=== PATIENT | male | born 1970 | race Caucasian/White ===

== ENCOUNTER 2019-01-11 12:37 | Emergency (ER) | payer MEDICARE, OTHER ==
[~2019-01-11] VITALS: Ht 182.9 cm; Wt 158.8 kg
[~2019-01-11 12:37] MED LIST: AMPDEX30CR; LISI5; METPHE18ER; Prozac20 MG PO
[2019-01-11 13:12] LABS: Source, Urine Clean Catch
[2019-01-11 13:17] LABS: Appearance, Urine Clear (Clear); Bilirubin, Urine Neg (Neg); Blood, Urine 4+ (Neg); Color, Urine Yellow (P-Yellow); Glucose Qualitative, Urine 4+ (Neg); Ketones, Urine 1+ (Neg); Leukocyte Esterase, Urine 3+ (Neg); Nitrite, Urine Neg (Neg); Protein, Urine 3+ (Neg); Urobilinogen, Urine NORM (Normal); pH, Urine 6.5 (5.0-8.0)
[2019-01-11 13:31] LABS: White Blood Cells, Urine 25-50 /hpf (0-5)
[2019-01-11 13:32] LABS: Bacteria Mod /hpf; Red Blood Cells, Urine 25-50 /hpf (0-2); Squamous Epithelial Cells Few /hpf (Few)
[2019-01-11] MEDS ORDERED: CEPH500 PO (14:49)
== END 2019-01-11 15:22 | disposition home or self-care (01) ==
LOC: ER 12:37
PROVIDERS: Physician Assistant
DX: T19.4XXA Foreign body in penis, initial encounter (principal); N39.0 Urinary tract infection, site not specified; F31.9 Bipolar disorder, unspecified; F17.200 Nicotine dependence, unspecified, uncomplicated; Z79.899 Other long term (current) drug therapy
CPT/HCPCS: 72170; 81001; 87086; 99283-25; A9270-GY

== ENCOUNTER 2021-12-02 07:54 | Emergency (ER) | payer OTHER ==
[~2021-12-02] VITALS: Ht 185.4 cm; Wt 127.0 kg
[~2021-12-02 07:54] MED LIST changes: +CEPH500 PO
[2021-12-02 09:02] LABS: Source, Urine Foley catheter
[2021-12-02 09:16] LABS: Appearance, Urine Hazy (Clear); Blood, Urine 3+ (Neg); Color, Urine Yellow (P-Yellow); Glucose Qualitative, Urine Neg (Neg); Ketones, Urine 1+ (Neg); Leukocyte Esterase, Urine 3+ (Neg); Nitrite, Urine Pos (Neg); Protein, Urine 4+ (Neg); Specific Gravity, Urine 1.015 (1.003-1.022); Urobilinogen, Urine 2+ (Normal)
[2021-12-02 09:32] LABS: Bilirubin, Urine 1+ (Neg)
[2021-12-02 09:37] LABS: White Blood Cells, Urine 25-50 /hpf (0-5)
[2021-12-02 09:43] LABS: Bacteria Many /hpf; Mucus Mod (0-Heavy); Squamous Epithelial Cells Rare /hpf (Few)
[2021-12-02] MEDS ORDERED: CEFP200 PO (10:18)
[2021-12-02] MEDS ORDERED: TAMS.4ER PO (10:18)
== END 2021-12-02 11:08 | disposition home or self-care (01) ==
LOC: ER 07:54
PROVIDERS: Physician Assistant
DX: N30.01 Acute cystitis with hematuria (principal); F17.210 Nicotine dependence, cigarettes, uncomplicated; Z79.899 Other long term (current) drug therapy
CPT/HCPCS: 51798; 81001; 87077; 87086; 87186; J0696

== ENCOUNTER 2022-05-22 11:52 | Observation (INO) | payer MEDICARE, OTHER ==
[~2022-05-22] VITALS: Ht 182.9 cm; Wt 162.3 kg
[~2022-05-22 11:52] MED LIST changes: +CEFP200 PO; +TAMS.4ER PO
[2022-05-22 12:52] LABS: BASOPHILS ABSOLUTE AUTO 0.04 K/mm3 (0.00-0.23); BASOPHILS PERCENT AUTO 0 % (0-2); EOSINOPHILS ABSOLUTE AUTO 0.13 K/mm3 (0.00-0.68); EOSINOPHILS PERCENT AUTO 1 % (0-6); IMMATURE GRAN ABSOLUTE AUTO 0.77 K/mm3 (0.00-0.10); IMMATURE GRAN PERCENT AUTO 4 % (0-1); LYMPHOCYTES ABSOLUTE AUTO 3.24 K/mm3 (0.84-5.20); LYMPHOCYTES PERCENT AUTO 17 % (21-46); MONOCYTES ABSOLUTE AUTO 1.56 K/mm3 (0.16-1.47); MONOCYTES PERCENT AUTO 8 % (4-13); Mean Corpuscular HGB 34.8 pg (26.0-34.0); Mean Corpuscular Volume 109 fL (80-100); NEUTROPHILS ABSOLUTE AUTO 12.86 K/mm3 (1.96-9.15); NEUTROPHILS PERCENT AUTO 69 % (41-73); NRBC ABSOLUTE 0.72 K/mm3 (0.00-0.02); NRBC Auto 3.9 /100 WBC (0.0-0.2); Platelet Count 272 K/mm3 (150-400); RDW Coefficient Variation 17.6 % (11.7-14.2); RDW Standard Deviation 61.9 fL (35.1-46.3); Red Blood Cell Count 1.64 M/mm3 (4.30-5.90)
[2022-05-22 12:58] LABS: Hematocrit 17.8 % (37.0-53.0); Hemoglobin 5.7 g/dL (13.5-17.5)
[2022-05-22 13:05] LABS: Alanine Aminotransfer (ALT/SGP 38 U/L (12-78); Albumin, Blood 2.7 g/dL (3.4-5.0); Albumin/Globulin Ratio 0.8 (0.8-1.8); Alk Phos 46 U/L (50-136); Anion Gap 3 mmol/L (6-16); Aspartate Aminotrans (AST/SGOT 32 U/L (12-37); Bilirubin, Total 0.4 mg/dL (0.1-1.0); Blood Urea Nitrogen 52 mg/dL (8-24); Bun/Creatinine Ratio 56.3 (12.0-20.0); CO2, Blood 29 mmol/L (21-32); Calcium, Blood 8.5 mg/dL (8.5-10.1); Chloride, Blood 103 mmol/L (98-108); Creatinine, Blood 0.92 mg/dL (0.60-1.20); Ethanol (Alcohol), Blood, Med <3 mg/dL; Globulin, Blood 3.3 g/dL (2.2-4.0); Glomerular Filtration Rate 101 (60-); Glucose, Blood 186 mg/dL (70-99); Potassium, Blood 3.8 mmol/L (3.5-5.5); Sodium, Blood 135 mmol/L (136-145)
[2022-05-22 14:02] LABS: International Normalized Ratio 1.07; Prothrombin Time Results 11.2 Sec (9.7-11.5)
[2022-05-22 15:41] LABS: Hemoglobin 5.3 g/dL (13.5-17.5)
[2022-05-22 15:44] LABS: Hematocrit 16.3 % (37.0-53.0)
[2022-05-22 16:07] LABS: Source, Urine Clean Catch
[2022-05-22 16:11] LABS: Appearance, Urine Hazy (Clear); Bilirubin, Urine Neg (Neg); Blood, Urine Neg (Neg); Color, Urine Yellow (P-Yellow); Glucose Qualitative, Urine Neg (Neg); Ketones, Urine Neg (Neg); Leukocyte Esterase, Urine 1+ (Neg); Nitrite, Urine Pos (Neg); Protein, Urine Neg (Neg); Urobilinogen, Urine NORM (Normal)
[2022-05-22] MEDS ORDERED: ABILIFY5 MG PO (16:16)
[2022-05-22] MEDS ORDERED: METF500 PO (16:16)
[2022-05-22] MEDS ORDERED: INSULIN GL100 UNIT/2 (16:17)
[2022-05-22] MEDS ORDERED: CYMBALTA30 M2 PO (16:17)
[2022-05-22] MEDS ORDERED: Budeprion Xl300 MG PO (16:17)
[2022-05-22] MEDS ORDERED: FLUTICASONE-SA1 EAC8 INH (16:18)
[2022-05-22] MEDS ORDERED: CLON.2 PO (16:18)
[2022-05-22] MEDS ORDERED: LISI20 PO (16:19)
[2022-05-22] MEDS ORDERED: METOPROLOL TART25 MG PO (16:19)
[2022-05-22] MEDS ORDERED: Ventolin/Prove6.7 GM INH (16:19)
[2022-05-22 16:20] LABS: Bacteria Many /hpf; Red Blood Cells, Urine 0-2 /hpf (0-2); Squamous Epithelial Cells Not Seen /hpf (Few)
[2022-05-22] MEDS ORDERED: INSULIN AS100 UNIT/8 SC (16:20)
[2022-05-22] MEDS ORDERED: FENOFIBRATE PO (16:20)
[2022-05-22 17:00] VITALS: BP 117/80
[2022-05-22 17:32] VITALS: BP 139/91
[2022-05-22 18:30] VITALS: BP 126/81
--- NOTE | 2022-05-22 18:55 | NUR ---
TRANSFER/SHIFT SUMMARY PT ARRIVED TO [facility] @APPROX 1645. PT A/O X4. HE IS ORIENTED TO MONTH BUT WAS UNABLE TO GIVE ME DATE. PT IS PLEASANT AND COOPERTIVE WITH CARE. HE HAS BEEN USING THE CALL LIGHT APPROPRIATELY. PT HAS SLIGHTLY SLURRED SPEECH AND STATES THIS IS ABNORMAL FOR HIM AND STARTED APPROX 2 DAYS AGO. PT IS TACHYCARDIC IN THE 110-120'S. HE IS ASYMPTOMATIC, DENYING ANY ANGINA. SPO2 >92% ON RA. RESPIRATIONS ARE EVEN AND UNLABORED AT REST. PT DOES APPEAR BE SLIGHTLY DYSPNEIC WITH EXERTION SUCH ROLLING IN BED. PT REPORTS WEARING A CPAP AT NIGHT. CPAP IS IN ROOM WITH PT. PT CONTINENT OF URINE AT BASELINE BUT HAS NEW URGENCY AND FREQUENCY AND HAD AN EPISODE OF INCONTINENCE. PT REPORTS THIS IS NEW FOR HIM AND HE TYPICALLY "ABLE TO HOLD IT" PT REPORTS HIS LAST DRINK WAS YESTERDAY AFTERNOON AND HE ONLY HAD ONE GLASS OF RUM. HE STATES HE TYPICALLY HAS 4 GLASSES OF RUM DAILY, APPROX A PINT/DAY. PT IS SLIGHTLY DIAPHORETIC. A TREMOR CAN BE FELT IN THE HANDS. HE REPORTS A VERY MILD HEADACHE THAT HE STATES IS CHRONIC FOR HIM. PT APPEARS DISHEVELED. HE APPEARS TO HAVE DIRT T/O BODY WITH A SIGNIFICANT AMOUNT ON FEET UPON ARRIVAL. NO WOUNDS WERE NOTED. PT REPORTS THAT HE LIVES AT HOME WITH HIS PARENTS AND THAT THEY HAVE GUARDIANSHIP OVER HIM. WILL CONTINUE TO CARE FOR PT AND REPORT TO ONCOMING RN.
[2022-05-22 19:00] VITALS: BP 143/94
--- NOTE | 2022-05-22 19:00 | NUR ---
ASSUMED CARE OF PT AT 1900 PT A/O X3. PT IS ANXIOUS AND ASKS THE SAME QUESTIONS TO ANY STAFF THAT ENTERS THE ROOM. USES CALL LIGHT FOR NEEDS. RESP- SPO2 >92% ON RA. LUNG SOUNDS CLEAR BILATERALLY THROUGHOUT. NO COUGH PRESENT AT THIS TIME. CARDIAC- HR 120'S WITH SINUS TACH. GI,- PT USES URINAL WITH ONE PERSON ASSIST. PRBC RUNNING AT THIS TIME AT 150 ML/HR. PROTONIX RUNNING AT 10 MLS/HR NS RUNNING AT 75 MLS/HR. SEE FULL ASSESSMENT FOR FURTHER INFORMATION.
[2022-05-22 20:33] LABS: Hemoglobin 6.6 g/dL (13.5-17.5)
[2022-05-22 23:02] VITALS: BP 137/73
[2022-05-22 23:42] VITALS: BP 127/77
[2022-05-23] VITALS (9 sets, daily range): BP systolic 117–179; BP diastolic 66–130
[2022-05-23 02:37] LABS: Bun/Creatinine Ratio 54.5 (12.0-20.0); Calcium, Blood 7.9 mg/dL (8.5-10.1); Creatinine, Blood 0.81 mg/dL (0.60-1.20); Potassium, Blood 3.4 mmol/L (3.5-5.5)
[2022-05-23 03:04] LABS: BASOPHILS ABSOLUTE AUTO 0.04 K/mm3 (0.00-0.23); BASOPHILS PERCENT AUTO 0 % (0-2); EOSINOPHILS ABSOLUTE AUTO 0.11 K/mm3 (0.00-0.68); EOSINOPHILS PERCENT AUTO 1 % (0-6); Hematocrit 20.2 % (37.0-53.0); Hemoglobin 6.8 g/dL (13.5-17.5); IMMATURE GRAN ABSOLUTE AUTO 0.64 K/mm3 (0.00-0.10); IMMATURE GRAN PERCENT AUTO 5 % (0-1); LYMPHOCYTES ABSOLUTE AUTO 2.85 K/mm3 (0.84-5.20); LYMPHOCYTES PERCENT AUTO 20 % (21-46); MONOCYTES ABSOLUTE AUTO 1.41 K/mm3 (0.16-1.47); MONOCYTES PERCENT AUTO 10 % (4-13); Mean Corpuscular HGB 33.5 pg (26.0-34.0); Mean Corpuscular HGB Conc 33.7 g/dL (31.5-36.5); Mean Platelet Volume 9.6 fL (9.1-12.4); NEUTROPHILS ABSOLUTE AUTO 9.01 K/mm3 (1.96-9.15); NEUTROPHILS PERCENT AUTO 64 % (41-73); NRBC ABSOLUTE 0.58 K/mm3 (0.00-0.02); NRBC Auto 4.1 /100 WBC (0.0-0.2); Platelet Count 198 K/mm3 (150-400); RDW Coefficient Variation 19.5 % (11.7-14.2); RDW Standard Deviation 62.7 fL (35.1-46.3); Red Blood Cell Count 2.03 M/mm3 (4.30-5.90); White Blood Cell Count 14.06 K/mm3 (4.00-11.30)
[2022-05-23 03:05] LABS: Mean Corpuscular Volume 100 fL (80-100)
--- NOTE | 2022-05-23 04:20 | NUR ---
AGREEMENT TO PROCEDURE. PT WAS EDUCATED ON THE CURRENT BLEED THAT IS CONTINUING. PT IS AGREEABLE TO PROCEDURE NEEDED TO POSSIBLY FIND AND STOP BLEED. PT HAS NOT HAD BM THIS SHIFT YET. WILL CONTINUE TO MONITOR.
--- NOTE | 2022-05-23 05:31 | NUR ---
END OF SHIFT SUMMARY PT A/O X3. PLEASANT AND COOPERATIVE WITH CARE. C/O WEAKNESS WHEN SITTING UP. NO PAIN AT THIS TIME. RESP- >92% RA. USED CPAP MACHINE FOR LESS THAN AN HOUR THIS SHIFT. CARDIAC- SINUS TACHY ALL SHIFT WITH HR 120'S. SBP 140'S CURRENTLY. 2 UNITS PRBC GIVEN THIS SHIFT WITH THE SECOND ONCE STILL INFUSING AT THIS TIME. GI,- NO BM THIS SHIFT. PT STATES THAT HE DOES NOT FEEL LIKE HE NEEDS TO HAVE A BM. 2 BM'S REPORTED FROM DAYSHIFT YESTERDAY THAT WERE BLACK. PT USES URINAL WITH ONE PERSON ASSIST. INTEG- NO CHANGES AT THIS TIME. NS AT 75 MLS/HR. PRBC 200 MLS/HR. PT IS AGREEING TO EGD BEING DONE. DR KIDD TO BE NOTIFIED OF PT CHANGING MIND FOR PROCEDURE. WILL CONTINUE TO MONITOR UNTIL REPORT GIVEN TO AM RN.
[2022-05-23 07:45] LABS: Hematocrit 22.1 % (37.0-53.0); Hemoglobin 7.4 g/dL (13.5-17.5)
--- NOTE | 2022-05-23 09:58 | NUR ---
ASSUMPTION OF CARE: RECEIVED REPORT FROM NOC SHIFT RN. PT ALERT AND ORIENTED TO PERSON,PLACE AND SITUATION. PT RECEIVED BLOOD TX ON NOC SHIFT WHICH WAS DONE TRANSFUSING. LUNG SOUNDS CLEAR IN THE UPPER LOBES AND SLIGHTLY DIMINSHED IN THE BASES. PT APPEARED ANXIOUS AND DIAPHORETIC. CIWA DONE AND MEDICATED PER APR. PT PROTONIX RESTARTED AT 0738, WHICH HAD BEEN OFF SINCE 1999. PT WANTED TO LEAVE BUT WAS RE-EDUCATED ON THE BENEFIT OF STAYING AND GETTING TREATMENT. PT WANTED TO TRY AND GET UP HOWEVER UPON SITTING ON THE EDGE OF THE BED HE BECAME TACHYCARDIC IN THE 150-160'S. PT FAMILY AT THE BEDSIDE. PLAN IS TO SCOPE THE PT AT 1500. WILL CONTINUE TO MONITOR T/O THE SHIFT.
[2022-05-23 10:15] LABS: Hematocrit 23.2 % (37.0-53.0); Hemoglobin 7.7 g/dL (13.5-17.5)
--- NOTE | 2022-05-23 14:46 | NUR ---
05/23/22 1446 [place] MONITOR INTACT WITH CONTINUOUS PULSE OXIMETRY, CONTINUOUS END TITAL CO2, AND INTERMITTENT BLOOD PRESSURE. 3-LEAD EKG REVIEWED WITH PHYSICIAN PRIOR TO START OF PROCEDURE. O2 VIA POM INTACT THROUGHOUT SEDATION/PROCEDURE. Bite Block Placed.
[2022-05-23 16:04] LABS: Hematocrit 23.3 % (37.0-53.0); Hemoglobin 7.7 g/dL (13.5-17.5)
--- NOTE | 2022-05-23 17:15 | NUR ---
SHIFT SUMMARY: PT WENT TO DAY SURGERY FOR UPPER ENDOSCOPY AT 1400. RETURNED TO ROOM AT APPROX 1600. PT WAS TRANSITIONED TO PO PROTONIX FIRST DOSE NOW, MEDICATED PER APR. PT VITAL SIGNS STABLE. NO C/O OF CHEST PAIN OR PRESSURE T/O THE SHIFT. PT ABLE TO AMBULATE TO THE BATHROOM WITH ASSISTANCE, HR REMAINED STABLE WITH ACTIVITY. PT RECEIVING POTASSIUM IV AT 10 MLS/HR. PT EATING DINNER AT THIS TIME. PER DR. ONEIL IF NO FURTHER ISSUES LIKE N/V PT MAY D/C HOME THIS EVENING. WILL CONTINUE TO MONITOR AND GIVE REPORT TO THE ONCOMING NURSE IF PT STILL HERE AT THAT TIME.
--- NOTE | 2022-05-23 18:12 | NUR ---
THIS RN REVIEWED AND AGREED TO STUDENTS NOTES AND DOCUMENTATION.
[2022-05-23] MEDS ORDERED: Acetaminophen650 M1 PO (18:29)
[2022-05-23] MEDS ORDERED: FOLBIC PO (18:45)
[2022-05-23] MEDS ORDERED: PANT40 PO (18:46)
[2022-05-23] MEDS ORDERED: B-1100 M1 PO (18:46)
== END 2022-05-23 19:15 | disposition home or self-care (01) ==
LOC: ER 11:52 → PCU 14:48 → ER 14:48 → PCU 14:48
PROVIDERS: Emergency Medicine; Internal Medicine Gastroenterology; ADMIT Internal Medicine
PROC: 0DJ08ZZ Inspection of Upper Intestinal Tract, Via Natural or Artificial Opening Endoscopic (ICD-10-PCS; principal; 2022-05-23 14:30)
DX: K22.11 Ulcer of esophagus with bleeding (principal); K92.1 Melena; D64.9 Anemia, unspecified; T39.315A Adverse effect of propionic acid derivatives, initial encounter; E11.9 Type 2 diabetes mellitus without complications; Z79.4 Long term (current) use of insulin; E78.2 Mixed hyperlipidemia; G47.33 Obstructive sleep apnea (adult) (pediatric); I10 Essential (primary) hypertension; F10.10 Alcohol abuse, uncomplicated; G43.909 Migraine, unspecified, not intractable, without status migrainosus
CPT/HCPCS: 36415; 36430; 71045; 80048; 80053; 81001; 82947; 83036; 85014; 85018; 85025; 85610; 86850; 86900; 86901; 86923; 87077; 87086; 87186; 93005; 93010; 94660; 94762; 96365; 96375; 99285-25; A9270; C9113; G0378; G0480; J1815; J2060; J2704; J3411; J3480; J7030; J7120; P9016

== ENCOUNTER 2022-06-03 00:08 | Day surgery (SDC) | payer MEDICARE, OTHER ==
[2022-06-03] VITALS (7 sets, daily range): BP systolic 149–164; BP diastolic 88–110
[~2022-06-03 00:08] MED LIST changes: +ABILIFY5 MG PO; +Acetaminophen650 M1 PO; +B-1100 M1 PO; +Budeprion Xl300 MG PO; +CLON.2 PO; +CYMBALTA30 M2 PO; +FENOFIBRATE PO; +FLUTICASONE-SA1 EAC8 INH; +FOLBIC PO; +INSULIN AS100 UNIT/8 SC; +INSULIN GL100 UNIT/2; +LISI20 PO; +METF500 PO; +METOPROLOL TART25 MG PO; +PANT40 PO; +Ventolin/Prove6.7 GM INH
[2022-06-03] MEDS ORDERED: NURTEC ODT75 MG PO (14:26)
== END 2022-06-03 17:10 | disposition home or self-care (01) ==
LOC: ATC 00:08
DX: D50.0 Iron deficiency anemia secondary to blood loss (chronic) (principal); I10 Essential (primary) hypertension; E11.9 Type 2 diabetes mellitus without complications; F17.210 Nicotine dependence, cigarettes, uncomplicated; Z88.1 Allergy status to other antibiotic agents; Z88.8 Allergy status to other drugs, medicaments and biological substances
CPT/HCPCS: 36415; 36430; 86850; 86900; 86901; 86923; J7050; P9016

== ENCOUNTER 2022-09-10 05:59 | Emergency (ER) | payer MEDICARE, OTHER ==
[~2022-09-10] VITALS: Ht 182.9 cm; Wt 136.1 kg
[~2022-09-10 05:59] MED LIST changes: +Lopressor 50 mg50 MG PO; +NURTEC ODT75 MG PO
[2022-09-10 06:41] LABS: BASOPHILS ABSOLUTE AUTO 0.04 K/mm3 (0.00-0.23); BASOPHILS PERCENT AUTO 1 % (0-2); EOSINOPHILS ABSOLUTE AUTO 0.22 K/mm3 (0.00-0.68); EOSINOPHILS PERCENT AUTO 3 % (0-6); Hematocrit 36.1 % (37.0-53.0); Hemoglobin 10.2 g/dL (13.5-17.5); IMMATURE GRAN ABSOLUTE AUTO 0.01 K/mm3 (0.00-0.10); IMMATURE GRAN PERCENT AUTO 0 % (0-1); LYMPHOCYTES ABSOLUTE AUTO 1.32 K/mm3 (0.84-5.20); LYMPHOCYTES PERCENT AUTO 19 % (21-46); MONOCYTES PERCENT AUTO 9 % (4-13); Mean Corpuscular HGB Conc 28.3 g/dL (31.5-36.5); Mean Corpuscular Volume 78 fL (80-100); Mean Platelet Volume 9.1 fL (9.1-12.4); NEUTROPHILS ABSOLUTE AUTO 4.61 K/mm3 (1.96-9.15); NEUTROPHILS PERCENT AUTO 68 % (41-73); Platelet Count 207 K/mm3 (150-400); RDW Coefficient Variation 19.8 % (11.7-14.2); RDW Standard Deviation 55.1 fL (35.1-46.3); Red Blood Cell Count 4.64 M/mm3 (4.30-5.90)
[2022-09-10 07:03] LABS: Albumin, Blood 3.3 g/dL (3.4-5.0); Albumin/Globulin Ratio 0.8 (0.8-1.8); Bilirubin, Total 0.4 mg/dL (0.1-1.0); Bun/Creatinine Ratio 16.4 (12.0-20.0); Calcium, Blood 9.1 mg/dL (8.5-10.1); Creatinine, Blood 0.91 mg/dL (0.60-1.20); Globulin, Blood 4.1 g/dL (2.2-4.0); Potassium, Blood 4.8 mmol/L (3.5-5.5); Total Protein, Blood 7.4 g/dL (6.4-8.2)
[2022-09-10] MEDS ORDERED: HYDCHL25 PO (11:12)
[2022-09-10] MEDS ORDERED: AMLO5 PO (11:12)
[2022-09-10] MEDS ORDERED: LABE200 PO (11:12)
[2022-09-10 11:15] VITALS: BP 190/122
== END 2022-09-10 11:19 | disposition home or self-care (01) ==
LOC: ER 05:59 → MEDS 06:00 → ER 06:00
PROVIDERS: Emergency Medicine
DX: I16.9 Hypertensive crisis, unspecified (principal); E11.9 Type 2 diabetes mellitus without complications; K21.9 Gastro-esophageal reflux disease without esophagitis; F17.210 Nicotine dependence, cigarettes, uncomplicated; Z88.1 Allergy status to other antibiotic agents; Z79.4 Long term (current) use of insulin; Z79.84 Long term (current) use of oral hypoglycemic drugs; Z79.899 Other long term (current) drug therapy
CPT/HCPCS: 71046; 80053; 83880; 84484; 85025; 93005; 93010; 96374; 96375; 99284-25; A9270; C8929; J1815; J2060; Q9957

== ENCOUNTER 2022-09-13 16:53 | Observation (INO) | payer MEDICARE, OTHER ==
[~2022-09-13] VITALS: Ht 182.9 cm; Wt 150.8 kg
[~2022-09-13 16:53] MED LIST changes: +AMLO5 PO; +HYDCHL25 PO; +LABE200 PO
[2022-09-13 18:04] LABS: BASOPHILS ABSOLUTE AUTO 0.05 K/mm3 (0.00-0.23); BASOPHILS PERCENT AUTO 1 % (0-2); EOSINOPHILS ABSOLUTE AUTO 0.21 K/mm3 (0.00-0.68); EOSINOPHILS PERCENT AUTO 3 % (0-6); Hematocrit 36.9 % (37.0-53.0); Hemoglobin 10.6 g/dL (13.5-17.5); IMMATURE GRAN ABSOLUTE AUTO 0.03 K/mm3 (0.00-0.10); IMMATURE GRAN PERCENT AUTO 0 % (0-1); LYMPHOCYTES ABSOLUTE AUTO 2.06 K/mm3 (0.84-5.20); LYMPHOCYTES PERCENT AUTO 25 % (21-46); MONOCYTES ABSOLUTE AUTO 0.69 K/mm3 (0.16-1.47); MONOCYTES PERCENT AUTO 8 % (4-13); Mean Corpuscular HGB 22.1 pg (26.0-34.0); Mean Corpuscular HGB Conc 28.7 g/dL (31.5-36.5); Mean Corpuscular Volume 77 fL (80-100); Mean Platelet Volume 8.9 fL (9.1-12.4); NEUTROPHILS ABSOLUTE AUTO 5.13 K/mm3 (1.96-9.15); NEUTROPHILS PERCENT AUTO 63 % (41-73); Platelet Count 282 K/mm3 (150-400); RDW Coefficient Variation 19.9 % (11.7-14.2); RDW Standard Deviation 55.2 fL (35.1-46.3); Red Blood Cell Count 4.79 M/mm3 (4.30-5.90); White Blood Cell Count 8.17 K/mm3 (4.00-11.30)
[2022-09-13 18:05] LABS: Albumin, Blood 3.5 g/dL (3.4-5.0); Albumin/Globulin Ratio 0.8 (0.8-1.8); Bilirubin, Total 0.3 mg/dL (0.1-1.0); Bun/Creatinine Ratio 14.7 (12.0-20.0); Calcium, Blood 9.5 mg/dL (8.5-10.1); Creatinine, Blood 1.02 mg/dL (0.60-1.20); Globulin, Blood 4.3 g/dL (2.2-4.0); Potassium, Blood 3.1 mmol/L (3.5-5.5); Total Protein, Blood 7.8 g/dL (6.4-8.2)
[2022-09-13 22:17] LABS: Magnesium, Blood 1.4 mg/dL (1.6-2.4)
[2022-09-13 22:19] LABS: Thyroid Stimulating Hormone 3.75 uIU/mL (0.360-4.800)
[2022-09-14] VITALS (13 sets, daily range): BP systolic 110–188; BP diastolic 69–148
[2022-09-14 06:14] LABS: Bun/Creatinine Ratio 14.9 (12.0-20.0); Calcium, Blood 9.7 mg/dL (8.5-10.1); Creatinine, Blood 0.94 mg/dL (0.60-1.20)
[2022-09-14] MEDS ORDERED: METO100 PO (07:50)
[2022-09-14] MEDS ORDERED: OMEP20ER PO (07:51)
[2022-09-14] MEDS ORDERED: UBRELVY50 MG PO (07:53)
[2022-09-14] MEDS ORDERED: HUMULIN R500 UNIT/1 SC (07:55)
--- NOTE | 2022-09-14 08:39 | NUR ---
UPDATE: Patient's mother updated via telephone. Dr Flores at bedside and updated on rhythm change.
--- NOTE | 2022-09-14 10:59 | NUR ---
PROVIDER PHONE CALL: RN instructed by provider to give 2mg IV ativan now for elevated HR.
--- NOTE | 2022-09-14 11:37 | NUR ---
PROVIDER UPDATE: Provider updated on pt status
--- NOTE | 2022-09-14 13:42 | NUR ---
DISCHARGE: Pt discharged home with mother and father. Pt and mother provided verbal and written discharge education; both verbalized understanding and agreement. Return precautions discussed. IV removed without complication. Pt wheeled out by OC.
== END 2022-09-14 13:45 | disposition home or self-care (01) ==
LOC: ER 16:53 → ERHOLD 16:54 → ICUE 16:54 → ERHOLD 16:54 → ICUE 09-14 07:35
PROVIDERS: Nurse Practitioner Acute Care; Physician Assistant; ADMIT Internal Medicine
DX: R07.89 Other chest pain (principal); R77.8 Other specified abnormalities of plasma proteins; I10 Essential (primary) hypertension; E87.6 Hypokalemia; G47.33 Obstructive sleep apnea (adult) (pediatric); E11.9 Type 2 diabetes mellitus without complications; J44.9 Chronic obstructive pulmonary disease, unspecified; K21.9 Gastro-esophageal reflux disease without esophagitis; F10.20 Alcohol dependence, uncomplicated; D50.9 Iron deficiency anemia, unspecified; F20.9 Schizophrenia, unspecified; F17.210 Nicotine dependence, cigarettes, uncomplicated; E66.01 Morbid (severe) obesity due to excess calories; Z88.1 Allergy status to other antibiotic agents; Z79.4 Long term (current) use of insulin; Z79.84 Long term (current) use of oral hypoglycemic drugs; Z79.899 Other long term (current) drug therapy
CPT/HCPCS: 80048; 80053; 82947; 83735; 83880; 84443; 84484; 85025; 93005; 93010; 94640; 94664; 96372; 96374; 96375; 99285-25; A9270; G0378; J1815; J1940; J2060; J2405; J7030

== ENCOUNTER 2022-09-26 21:57 | Emergency (ER) | payer MEDICARE, OTHER ==
[~2022-09-26] VITALS: Ht 182.9 cm; Wt 149.7 kg
[~2022-09-26 21:57] MED LIST changes: +HUMULIN R500 UNIT/1 SC; +METO100 PO; +OMEP20ER PO; +UBRELVY50 MG PO
[2022-09-26 22:29] LABS: BASOPHILS ABSOLUTE AUTO 0.03 K/mm3 (0.00-0.23); BASOPHILS PERCENT AUTO 1 % (0-2); EOSINOPHILS PERCENT AUTO 3 % (0-6); Hematocrit 39.3 % (37.0-53.0); Hemoglobin 11.4 g/dL (13.5-17.5); IMMATURE GRAN ABSOLUTE AUTO 0.02 K/mm3 (0.00-0.10); IMMATURE GRAN PERCENT AUTO 0 % (0-1); LYMPHOCYTES ABSOLUTE AUTO 2.13 K/mm3 (0.84-5.20); LYMPHOCYTES PERCENT AUTO 34 % (21-46); MONOCYTES ABSOLUTE AUTO 0.54 K/mm3 (0.16-1.47); MONOCYTES PERCENT AUTO 9 % (4-13); Mean Corpuscular HGB 22.6 pg (26.0-34.0); Mean Corpuscular Volume 78 fL (80-100); Mean Platelet Volume 9.6 fL (9.1-12.4); NEUTROPHILS ABSOLUTE AUTO 3.34 K/mm3 (1.96-9.15); NEUTROPHILS PERCENT AUTO 53 % (41-73); Platelet Count 223 K/mm3 (150-400); RDW Coefficient Variation 19.8 % (11.7-14.2); RDW Standard Deviation 53.3 fL (35.1-46.3); Red Blood Cell Count 5.04 M/mm3 (4.30-5.90); White Blood Cell Count 6.26 K/mm3 (4.00-11.30)
[2022-09-26 23:22] LABS: Magnesium, Blood 1.8 mg/dL (1.6-2.4)
[2022-09-26 23:47] LABS: Albumin, Blood 3.7 g/dL (3.4-5.0); Albumin/Globulin Ratio 0.9 (0.8-1.8); Bilirubin, Total 0.2 mg/dL (0.1-1.0); Bun/Creatinine Ratio 19.4 (12.0-20.0); Calcium, Blood 9.6 mg/dL (8.5-10.1); Creatinine, Blood 1.75 mg/dL (0.60-1.20); Potassium, Blood 4.2 mmol/L (3.5-5.5); Total Protein, Blood 7.7 g/dL (6.4-8.2)
[2022-09-27 02:08] VITALS: BP 130/77
== END 2022-09-27 02:08 | disposition home or self-care (01) ==
LOC: ER 21:57
PROVIDERS: Student in an Organized Health Care Education/Training Program
DX: R00.2 Palpitations (principal); N17.9 Acute kidney failure, unspecified; R77.8 Other specified abnormalities of plasma proteins; Z88.1 Allergy status to other antibiotic agents; Z79.899 Other long term (current) drug therapy; Z79.84 Long term (current) use of oral hypoglycemic drugs; Z79.4 Long term (current) use of insulin; F17.210 Nicotine dependence, cigarettes, uncomplicated; I10 Essential (primary) hypertension; E11.9 Type 2 diabetes mellitus without complications; K21.9 Gastro-esophageal reflux disease without esophagitis; I25.2 Old myocardial infarction; I48.91 Unspecified atrial fibrillation
CPT/HCPCS: 71046; 80053; 83735; 83880; 84484; 85025; 93005; 93010; 96361; 96374; 99284-25; J3475; J7030

== ENCOUNTER → 2024-10-06 | Outpatient (CLI) | payer MEDICARE, OTHER ==
[~2024-10-06] MED LIST changes: +ATOR40TA PO; +Aspir 8181 MG PO; +BREO ELLIPTA 11 EAC1; +CHLO5; +ELIQUIS5 M2 PO; +FLUT1DIS2 INH; +HUMALOG100 UNIT/1; +Norco 5-325 Ta1 EACH; +TRULICITY0.75 MG/01; +VRAYLAR; +[UNRECOGNIZED DRUG - SUPPLY]
[2024-10-13 14:59] LABS: Stool Occult Bld Immuno 1 Positive (NEGATIVE)
== END ==
LOC: LAB 10:45 → LAB SHORT 10:45
PROVIDERS: Nurse Practitioner Family
DX: Z12.11 Encounter for screening for malignant neoplasm of colon (principal)
CPT/HCPCS: G0328

== ENCOUNTER 2024-12-28 13:13 | Observation (INO) | payer MEDICARE, OTHER ==
[~2024-12-28] VITALS: Ht 182.9 cm; Wt 155.5 kg
[~2024-12-28 13:13] MED LIST changes: -CYMBALTA30 M2 PO; +DULO60 PO
[2024-12-28] MEDS ORDERED: NS 1,000 ML IV SCH ×4 (13:45→23:25)
[2024-12-28 13:49] LABS: BASOPHILS ABSOLUTE AUTO 0.04 K/mm3 (0.00-0.23); BASOPHILS PERCENT AUTO 1 % (0-2); EOSINOPHILS ABSOLUTE AUTO 0.10 K/mm3 (0.00-0.68); EOSINOPHILS PERCENT AUTO 1 % (0-6); Hematocrit 41.1 % (37.0-53.0); Hemoglobin 13.8 g/dL (13.5-17.5); IMMATURE GRAN ABSOLUTE AUTO 0.03 K/mm3 (0.00-0.10); IMMATURE GRAN PERCENT AUTO 0 % (0-1); LYMPHOCYTES ABSOLUTE AUTO 1.35 K/mm3 (0.84-5.20); LYMPHOCYTES PERCENT AUTO 18 % (21-46); MONOCYTES ABSOLUTE AUTO 0.58 K/mm3 (0.16-1.47); MONOCYTES PERCENT AUTO 8 % (4-13); Mean Corpuscular HGB Conc 33.6 g/dL (31.5-36.5); Mean Corpuscular Volume 99 fL (80-100); NEUTROPHILS ABSOLUTE AUTO 5.33 K/mm3 (1.96-9.15); NEUTROPHILS PERCENT AUTO 72 % (41-73); NRBC ABSOLUTE 0.00 K/mm3 (0.00-0.02); NRBC Auto 0.0 /100 WBC (0.0-0.2); Platelet Count 142 K/mm3 (150-400); RDW Coefficient Variation 12.5 % (11.7-14.2); RDW Standard Deviation 44.7 fL (35.1-46.3)
[2024-12-28 14:11] LABS: Alanine Aminotransfer (ALT/SGP 39.0 U/L (12-78); Albumin, Blood 3.2 g/dL (3.4-5.0); Albumin/Globulin Ratio 1.0 (0.8-1.8); Anion Gap 14.0 mmol/L (3-11); Aspartate Aminotrans (AST/SGOT 34.0 U/L (12-37); Bilirubin, Total 0.3 mg/dL (0.1-1.0); Blood Urea Nitrogen 23.0 mg/dL (8-24); CO2, Blood 17.0 mmol/L (21-32); Calcium, Blood 8.5 mg/dL (8.5-10.1); Chloride, Blood 109.0 mmol/L (98-108); Creatinine, Blood 1.77 mg/dL (0.60-1.20); Globulin, Blood 3.2 g/dL (2.2-4.0); Glucose, Blood 127.0 mg/dL (70-99); Potassium, Blood 4.4 mmol/L (3.5-5.5); Sodium, Blood 136.0 mmol/L (136-145); Total Protein, Blood 6.4 g/dL (6.4-8.2)
[2024-12-28 17:06] LABS: Magnesium, Blood 1.9 mg/dL (1.6-2.4); Phosphorus, Blood 2.1 mg/dL (2.5-4.9)
[2024-12-28] MEDS ORDERED: Ondansetron HCl 2 MG / ML 2ML Vial IV PRN (18:30)
[2024-12-28] MEDS ORDERED: FLU VACC TS2025-26(6MOS UP)/PF 45 MCG/0.5 ML SYRINGE IM SCH (18:35)
[2024-12-28] MEDS ORDERED: HYDROcodone 5-APAP 325 TAB PO PRN (18:35)
[2024-12-28] MEDS ORDERED: LORazepam 2 MG/ML 1ML Injection IV PRN ×2 (18:35)
[2024-12-28] MEDS ORDERED: Metoprolol Tartrate 1 MG/ML 5 ML VIAL IV ONE (19:00)
[2024-12-28] MEDS ORDERED: Formoterol/Mometasone MDI 5/200 mcg 13 GM INH SCH (19:00)
[2024-12-28 19:13] LABS: pH Blood Venous 7.37 (7.34-7.37)
[2024-12-28] MEDS ORDERED: Insulin Human Lispro 100 Units/ML 3ML Syringe SC SCH (21:00)
[2024-12-28 21:26] VITALS: BP 138/79
[2024-12-28] MEDS ORDERED: TOPI25 PO (21:39)
[2024-12-28] MEDS ORDERED: NS 500 ML IV ONE (22:00)
[2024-12-28] MEDS ORDERED: FENOFIBRATE PO (22:20)
[2024-12-28 23:32] VITALS: BP 134/86
--- NOTE | 2024-12-29 01:45 | NUR ---
DR. JAUREGUI WAS NOTIFIED OF PATIENTS LAB RESULTS FROM YESTERDAY AT 12/28/24 AT AROUND 1500 HIS PHOS LEVEL WAS 2.1 WITH NO REPLACEMENTS ORDERED/GIVEN PER ORDERS OR EMAR. THIS NURSE ASKED IF MD WANTED TO ORDER ELECTROLYTE REPLACEMENT. MD STATED "I'LL REVIEW THE PATIENTS CHART AND ORDER IT IF NEEDED." NO NEW ORDERS AT THIS TIME.
[2024-12-29] MEDS ORDERED: ATOR40TA PO (02:08)
[2024-12-29] MEDS ORDERED: AMLO5 PO (02:08)
[2024-12-29] MEDS ORDERED: FENO67 PO (02:09)
[2024-12-29] MEDS ORDERED: LABE200 PO (02:09)
[2024-12-29] MEDS ORDERED: [UNRECOGNIZED DRUG - SUPPLY] SC (02:13)
[2024-12-29] MEDS ORDERED: TRULICITY4.5 MG/0.5 SC (02:16)
[2024-12-29] MEDS ORDERED: DULO60 PO (02:17)
[2024-12-29] MEDS ORDERED: Budeprion Xl300 MG PO (02:18)
[2024-12-29] MEDS ORDERED: ALBU90OI INH (02:20)
[2024-12-29] MEDS ORDERED: HUMALOG KW100 UNIT/1 SC (02:20)
[2024-12-29] MEDS ORDERED: BREO ELLIPTA 11 EAC1 PO (02:25)
[2024-12-29] MEDS ORDERED: ELIQUIS5 M2 PO (02:25)
[2024-12-29] MEDS ORDERED: PROTONIX40 M9 PO (02:25)
[2024-12-29 03:22] LABS: U Cannabinoids Screen DETECTED
[2024-12-29 03:23] LABS: U Amphetamine Screen Not Detected; U Barbiturate Screen Not Detected; U Benzodiazapine Screen Not Detected; U Buprenorphine Screen Not Detected; U Cocaine Screen Not Detected; U Methadone Screen Not Detected; U Methamphetamine Screen Not Detected; U Opiates Screen Not Detected; U Oxycodone Screen Not Detected; U Phencyclidine Screen Not Detected
[2024-12-29 04:02] VITALS: BP 150/107
[2024-12-29 04:45] LABS: Anion Gap 8.0 mmol/L (3-11); Blood Urea Nitrogen 27.0 mg/dL (8-24); CO2, Blood 24.0 mmol/L (21-32); Calcium, Blood 8.3 mg/dL (8.5-10.1); Chloride, Blood 110.0 mmol/L (98-108); Creatinine, Blood 1.7 mg/dL (0.60-1.20); Glucose, Blood 128.0 mg/dL (70-99); Magnesium, Blood 2.0 mg/dL (1.6-2.4); Potassium, Blood 4.1 mmol/L (3.5-5.5); Sodium, Blood 138.0 mmol/L (136-145)
--- NOTE | 2024-12-29 05:11 | NUR ---
SHIFT SUMMARY: PATIENT WAS AN ER ADMIT TOWARDS THE BEGINNING OF THIS SHIFT. PATIENT WAS ABLE TO STAND-PIVOT FROM THE GURNEY TO THE BED A SBA DUE TO REPORTING "DIZZINESS" WITH AMBULATION AND HX OF FALLS AT HOME. PATIENT IS A&OX4 BUT IS A POOR HISTORIAN ON MEDICATIONS AND SURGERIES. HOME MED LIST WAS COMPLETED BY USING CLAIMED HISTORY AND WITH WHICH MEDICATIONS HE RECENTLY PICKED UP FROM HIS PREFERRED PHARMACY WHICH IS [facility] IN [place]. PATIENT ALSO WAS ABLE TO REPORT WHICH MEDS HE TOOK YESTERDAY MORNING PRIOR TO COMING INTO THE HOSPITAL. IV NS RUNNING AT 125 ML/HR PER EMAR. HE HAD A X1 BOLUS OF 500ML WELL. PATIENT HAS VOIDED TWICE SINCE ARRIVAL TO THE UNIT - BLADDER SCAN DONE IN CASE OF RETENTION BUT BLADDER SCAN SHOWED 130ML. DR. JAUREGUI NOTIFIED ABOUT PATIENTS HIGH BP OF 150'S SYSTOLIC AND 100'S DIASTOLIC WELL PATIENT DID NOT GET HIS EVENING DOSE OF HIS "BLOOD PRESSURE MED." APPROVED TO GIVE PATIENT HIS 0900 METOPROLOL DOSE EARLY LONG HR WAS >60 BPM WHICH IT HAS BEEN. [facility] REPORTS ATRIAL FLUTTER RHYTHM WITH BBB AND HR IN THE 60'S BPM. PATIENT IS ON ROOM AIR WITH >90% SPO2. PATIENT CALLS APPROPRIATELY AND IS ABLE TO MAKE HIS NEEDS KNOWN. HE IS CURRENTLY LAYING IN BED WITH CALL LIGHT IN REACH.
[2024-12-29 05:23] VITALS: BP 154/106
[2024-12-29 08:52] VITALS: BP 152/94
[2024-12-29] MEDS ORDERED: Multivitamins 1 Tab PO SCH (09:00)
[2024-12-29] MEDS ORDERED: Folic Acid 1 MG TAB PO SCH (09:00)
[2024-12-29] MEDS ORDERED: DULoxetine HCL 60 MG Capsule DR PO SCH (10:00)
[2024-12-29] MEDS ORDERED: MULVITA PO (13:55)
[2024-12-29] MEDS ORDERED: B-1100 M1 PO (13:55)
--- NOTE | 2024-12-29 14:58 | NUR ---
DISCHARGE UPDATE DISCHARGE PACKET GONE OVER WITH AT 1440. PT DISCHARGED AT 1455. PT DECLINED WHEELCHAIR FOR TRANSPORT. DISCHARGE PACKET WITH PT AT TIME OF DISCHARGE. PT ON RA AT TIME OF DISCHARGE.
== END 2024-12-29 14:55 | disposition home or self-care (01) ==
LOC: ER 13:13 → ERHOLD 13:14 → PCU 13:14
PROVIDERS: Nurse Practitioner Acute Care; Physician Assistant; ADMIT Internal Medicine
DX: R55 Syncope and collapse (principal); R00.0 Tachycardia, unspecified; I12.9 Hypertensive chronic kidney disease with stage 1 through stage 4 chronic kidney disease, or unspecified chronic kidney disease; E11.22 Type 2 diabetes mellitus with diabetic chronic kidney disease; N18.9 Chronic kidney disease, unspecified; N17.9 Acute kidney failure, unspecified; F31.9 Bipolar disorder, unspecified; F20.9 Schizophrenia, unspecified; F90.9 Attention-deficit hyperactivity disorder, unspecified type; J44.9 Chronic obstructive pulmonary disease, unspecified; I25.10 Atherosclerotic heart disease of native coronary artery without angina pectoris; I25.2 Old myocardial infarction; I48.91 Unspecified atrial fibrillation; K21.9 Gastro-esophageal reflux disease without esophagitis; F10.20 Alcohol dependence, uncomplicated; E66.01 Morbid (severe) obesity due to excess calories; Z68.41 Body mass index [BMI] 40.0-44.9, adult; Z79.01 Long term (current) use of anticoagulants; Z79.4 Long term (current) use of insulin; Z79.84 Long term (current) use of oral hypoglycemic drugs; Z79.82 Long term (current) use of aspirin; Z79.899 Other long term (current) drug therapy; Z88.1 Allergy status to other antibiotic agents; Z87.891 Personal history of nicotine dependence
CPT/HCPCS: 36415; 71046; 76770; 80048; 80053; 82550; 82803; 82947; 83605; 83735; 83880; 84100; 84484; 85025; 85379; 93005; 93010; 94640; 94664; 94762; 96360; 96361; 97161; 97530; 99285-25; A9270; C8929; G0378; J7030; Q9957

== ENCOUNTER 2025-01-26 14:16 | Emergency (ER) | payer MEDICARE, OTHER ==
[~2025-01-26 14:16] MED LIST changes: +ALBU90OI INH; +BREO ELLIPTA 11 EAC1 PO; +FENO67 PO; +HUMALOG KW100 UNIT/1 SC; +MULVITA PO; +PROTONIX40 M9 PO; +TOPI25 PO; +TRULICITY4.5 MG/0.5 SC; +[UNRECOGNIZED DRUG - SUPPLY] SC
[2025-01-27] MEDS ORDERED: TOPI25 PO (12:07)
[2025-01-27] MEDS ORDERED: ABILIFY MYCITE20 M2 PO (12:08)
[2025-01-27] MEDS ORDERED: HYDPAM50 PO (12:09)
== END 2025-01-26 14:55 | disposition left against medical advice (07) ==
LOC: ER 14:16
DX: R10.9 Unspecified abdominal pain (principal); R14.0 Abdominal distension (gaseous); R42 Dizziness and giddiness; Z53.21 Procedure and treatment not carried out due to patient leaving prior to being seen by health care provider

== ENCOUNTER 2025-01-27 06:01 | Inpatient (IN) | payer MEDICARE, OTHER ==
[~2025-01-27] VITALS: Ht 182.9 cm; Wt 163.6 kg
[2025-01-27 06:35] LABS: BASOPHILS ABSOLUTE AUTO 0.04 K/mm3 (0.00-0.23); BASOPHILS PERCENT AUTO 0 % (0-2); EOSINOPHILS ABSOLUTE AUTO 0.00 K/mm3 (0.00-0.68); EOSINOPHILS PERCENT AUTO 0 % (0-6); Hematocrit 51.8 % (37.0-53.0); Hemoglobin 17.9 g/dL (13.5-17.5); IMMATURE GRAN ABSOLUTE AUTO 0.10 K/mm3 (0.00-0.10); IMMATURE GRAN PERCENT AUTO 1 % (0-1); LYMPHOCYTES ABSOLUTE AUTO 1.44 K/mm3 (0.84-5.20); LYMPHOCYTES PERCENT AUTO 8 % (21-46); MONOCYTES ABSOLUTE AUTO 0.80 K/mm3 (0.16-1.47); MONOCYTES PERCENT AUTO 5 % (4-13); Mean Corpuscular HGB Conc 34.6 g/dL (31.5-36.5); Mean Corpuscular Volume 94 fL (80-100); NEUTROPHILS ABSOLUTE AUTO 15.18 K/mm3 (1.96-9.15); NEUTROPHILS PERCENT AUTO 86 % (41-73); NRBC ABSOLUTE 0.02 K/mm3 (0.00-0.02); NRBC Auto 0.1 /100 WBC (0.0-0.2); Platelet Count 157 K/mm3 (150-400); RDW Coefficient Variation 12.3 % (11.7-14.2); RDW Standard Deviation 41.9 fL (35.1-46.3)
[2025-01-27 06:49] LABS: Alanine Aminotransfer (ALT/SGP 117.0 U/L (12-78); Albumin, Blood 2.9 g/dL (3.4-5.0); Albumin/Globulin Ratio 1.0 (0.8-1.8); Anion Gap 12.0 mmol/L (3-11); Aspartate Aminotrans (AST/SGOT 109.0 U/L (12-37); Bilirubin, Total 1.6 mg/dL (0.1-1.0); Blood Urea Nitrogen 22.0 mg/dL (8-24); CO2, Blood 27.0 mmol/L (21-32); Calcium, Blood 7.4 mg/dL (8.5-10.1); Chloride, Blood 99.0 mmol/L (98-108); Creatinine, Blood 0.95 mg/dL (0.60-1.20); Globulin, Blood 3.0 g/dL (2.2-4.0); Glucose, Blood 192.0 mg/dL (70-99); Potassium, Blood 3.7 mmol/L (3.5-5.5); Sodium, Blood 134.0 mmol/L (136-145); Total Protein, Blood 5.9 g/dL (6.4-8.2)
[2025-01-27] MEDS ORDERED: Magnesium Sulf 2 GM/Water 50ML 50 ML IV ONE (06:55)
[2025-01-27] MEDS ORDERED: Ketorolac Tromethamine 30mg Vial IV ONE (06:55)
[2025-01-27] MEDS ORDERED: Metoclopramide HCl 5MG / ML 2ML Vial IV ONE (06:55)
[2025-01-27] MEDS ORDERED: HYDROmorphone HCl/Pf 1MG SYR IV ONE ×2 (07:15→08:45)
[2025-01-27 08:19] LABS: Source, Urine Clean Catch
[2025-01-27] MEDS ORDERED: Piperacillin/Tazobactam Sod 4.5 GM in NS 100 ML IV ONE (08:30)
[2025-01-27 08:35] LABS: Bilirubin, Urine Neg (Neg); Color, Urine Yellow (P-Yellow); Glucose Qualitative, Urine Neg (Neg); Ketones, Urine Neg (Neg); Leukocyte Esterase, Urine Neg (Neg); Protein, Urine 2+ (Neg); Specific Gravity, Urine 1.015 (1.003-1.022); Urobilinogen, Urine 1+ (Normal)
[2025-01-27 08:44] LABS: Red Blood Cells, Urine 0-2 /hpf (0-2); White Blood Cells, Urine 0-2 /hpf (0-5)
[2025-01-27] MEDS ORDERED: Ondansetron HCl 2 MG / ML 2ML Vial IV PRN (09:50)
[2025-01-27] MEDS ORDERED: FentaNYL Citrate 50 MCG/ML 2 ML Injection IV PRN (09:50)
[2025-01-27] MEDS ORDERED: FLU VACC TS2025-26(6MOS UP)/PF 45 MCG/0.5 ML SYRINGE IM SCH (09:50)
[2025-01-27] MEDS ORDERED: D5W-NS 1,000 ML IV SCH (09:50)
[2025-01-27] MEDS ORDERED: Formoterol/Mometasone MDI 5/200 mcg 13 GM INH SCH (10:15)
[2025-01-27] MEDS ORDERED: Albuterol HFA200 ACT/6.7 GM INH INH PRN (10:15)
[2025-01-27 10:33] LABS: Anti-Xa UFH, PHA Monitoring 0.24 IU/mL; Prothrombin Time Results 12.4 Sec (9.7-11.5)
[2025-01-27] MEDS ORDERED: Heparin Sodium,Porcine/0.5 NS 500 ML IV SCH (10:50)
[2025-01-27 11:57] VITALS: BP 129/94
[2025-01-27] MEDS ORDERED: Insulin Regular 100 UNIT/ML 10ML Vial SC SCH (12:00)
[2025-01-27] MEDS ORDERED: HYDCHL25 PO (12:06)
[2025-01-27] MEDS ORDERED: TOPI25 PO (12:07)
[2025-01-27] MEDS ORDERED: ABILIFY MYCITE20 M2 PO (12:08)
[2025-01-27] MEDS ORDERED: HYDPAM50 PO (12:09)
[2025-01-27 13:51] VITALS: BP 119/97
[2025-01-27 15:19] VITALS: BP 133/99
[2025-01-27] MEDS ORDERED: CefTRIAXone Sodium 1,000 MG in NS 100 ML IV SCH (16:00)
--- NOTE | 2025-01-27 17:00 | NUR ---
SUMMARY ADMITTED PT FROM ER. AXO4. PAINFUL - MEDICATED PER EMAR. DENYING NAUSEA BUT ABD TENDERNESS PRESENT. PT NPO WITH ICE/WATER. CIWAS <8 CURRENTLY. HEP GTT INFUSING. FLUIDS INFUSING. TROPONINS PEAKED. LACTIC ACID TRENDED DOWN. BLOOD SUGARS STABLE. PT USING CALL LIGHT APPROPRIATELY.
--- NOTE | 2025-01-27 17:24 | NUR ---
PT ASKING FOR JELLO TO MULTIPLE STAFF - EVERY STAFF MEMBER THAT HAS ENTERED ROOM. EDUCATED ON PANCREATITIS GENERAL MANAGEMENT. PT AWARE BUT ASKED RN TO CALL DR. DR ACKERMAN NOTIFIED - STATES TO USE JELLO SPARINGLY AND TO CONTINUE TO REINFORCE EDUCATION REGARDING NPO STATUS.
[2025-01-27] MEDS ORDERED: HYDROmorphone HCl/Pf 1MG SYR IV PRN (17:25)
[2025-01-27] MEDS ORDERED: Dose Adjust by Pharmacy XX STA (19:20)
[2025-01-27 19:23] VITALS: BP 125/100
--- NOTE | 2025-01-27 20:59 | NUR ---
ASSUMPTION OF CARE PT A&O X4, CALM, COOPERATIVE TO CARE. HR IN THE 100'S-120'S, AFLUTTER. HE DENIES ANY CP/PRESSURE, NUMB/TINGLING. SBP STABLE. TELE NOTIFIED RN THAT PT WAS HAVING SOME ST DEPRESION. MD NOTIFIED, NO NEW ORDERS. TO NOTIFY MD IF PTS HR CONTINUES TO SUSTAIN 120'S. Sp02 >90% ON RA, HE DENIES ANY SOB. PT USING URINAL IN BED IND. PT DENIES ANY N/V, HE DOES REPORT SOME ABD PAIN, MEDICATED PER EMAR. PT RESTING IN BED AT THIS TIME. CALL LIGHT IN REACH.
[2025-01-27] MEDS ORDERED: Lactobacil 2-S.Thermo-Bifido 1 1 Cap PO SCH (21:00)
[2025-01-27 23:38] VITALS: BP 122/94
[2025-01-28] MEDS ORDERED: Dose Adjust by Pharmacy XX STA (02:06)
[2025-01-28 03:21] VITALS: BP 120/94
[2025-01-28] MEDS ORDERED: Metoprolol Tartrate 1 MG/ML 5 ML VIAL IV PRN (05:30)
--- NOTE | 2025-01-28 06:47 | NUR ---
SHIFT SUMMARY PT A&O X4, CALM, COOPERATIVE TO CARE. PT HR RANGING FROM 90'S-120'S, AFLUTTER. PT DENIED ANY CP/PRESSURE. BP STABLE. TELE DID NOTIFY ONCE T/O NIGHT FOR SOME ST DEPRESSION, WAS NOTIFIED, NO NEW ORDERS PLACE. PT HR WAS SUSTAINING 120' S FOR A FEW HOURS, MD WAS NOTIFIED, ORDERS PLACED FOR PRN. PT WAS ON RA T/O NIGHT SATING IN THE HIGH 90'S. PT FELL ASLEEP AND DESATED DOWN TO THE 60'S. PT PLACED ON 2L VIA NC FOR SLEEP. PT REPORTS HE HAS A CPAP THAT HE IS SUPPOSE TO WEAR AT HOME BUT REPORTS HE IS INCONSISTENT WITH IT AND WOULD NOT WANT TO WEAR ONE HERE. WAS NOTIFIED. PT STILL HAVING ABD PAIN AND DISTENTION, MEDICATED PER EMAR. PT HAS NOT HAD BM T/O NIGHT. PT HAD ONLY 300 MLS OUT. BLADDER SCAN COMPLETED WHICH ONLY SHOWED 98ML'S. MD NOTIFIED, NO NEW ORDERS. PT ON HEPARIN GTT. FLUIDS INFUSING PER EMAR. PT RESTING IN BED AT THIS TIME. CALL LIGHT IN REACH. WILL REPORT TO ONCOMING RN.
[2025-01-28 07:11] LABS: BASOPHILS ABSOLUTE AUTO 0.04 K/mm3 (0.00-0.23); BASOPHILS PERCENT AUTO 0 % (0-2); EOSINOPHILS ABSOLUTE AUTO 0.06 K/mm3 (0.00-0.68); EOSINOPHILS PERCENT AUTO 0 % (0-6); Hematocrit 44.7 % (37.0-53.0); Hemoglobin 15.2 g/dL (13.5-17.5); IMMATURE GRAN ABSOLUTE AUTO 0.09 K/mm3 (0.00-0.10); IMMATURE GRAN PERCENT AUTO 1 % (0-1); LYMPHOCYTES ABSOLUTE AUTO 1.49 K/mm3 (0.84-5.20); LYMPHOCYTES PERCENT AUTO 10 % (21-46); MONOCYTES ABSOLUTE AUTO 1.12 K/mm3 (0.16-1.47); MONOCYTES PERCENT AUTO 8 % (4-13); Mean Corpuscular HGB Conc 34.0 g/dL (31.5-36.5); Mean Corpuscular Volume 96 fL (80-100); NEUTROPHILS ABSOLUTE AUTO 12.16 K/mm3 (1.96-9.15); NEUTROPHILS PERCENT AUTO 81 % (41-73); NRBC ABSOLUTE 0.00 K/mm3 (0.00-0.02); NRBC Auto 0.0 /100 WBC (0.0-0.2); Platelet Count 109 K/mm3 (150-400); RDW Coefficient Variation 13.0 % (11.7-14.2); RDW Standard Deviation 44.8 fL (35.1-46.3)
[2025-01-28 07:28] LABS: Alanine Aminotransfer (ALT/SGP 69.0 U/L (12-78); Albumin, Blood 2.1 g/dL (3.4-5.0); Albumin/Globulin Ratio 0.6 (0.8-1.8); Anion Gap 8.0 mmol/L (3-11); Aspartate Aminotrans (AST/SGOT 53.0 U/L (12-37); Bilirubin, Total 1.0 mg/dL (0.1-1.0); Blood Urea Nitrogen 24.0 mg/dL (8-24); CO2, Blood 29.0 mmol/L (21-32); Calcium, Blood 6.6 mg/dL (8.5-10.1); Chloride, Blood 101.0 mmol/L (98-108); Creatinine, Blood 1.18 mg/dL (0.60-1.20); Globulin, Blood 3.3 g/dL (2.2-4.0); Glucose, Blood 184.0 mg/dL (70-99); Potassium, Blood 3.3 mmol/L (3.5-5.5); Sodium, Blood 135.0 mmol/L (136-145); Total Protein, Blood 5.4 g/dL (6.4-8.2)
[2025-01-28 07:59] VITALS: BP 122/104
[2025-01-28] MEDS ORDERED: Folic Acid 1 MG TAB PO SCH (09:00)
[2025-01-28] MEDS ORDERED: DULoxetine HCL 60 MG Capsule DR PO SCH (09:00)
[2025-01-28] MEDS ORDERED: Fenofibrate 67 MG Cap PO SCH (09:00)
[2025-01-28 11:12] VITALS: BP 111/85
[2025-01-28 16:20] VITALS: BP 118/83
--- NOTE | 2025-01-28 17:43 | NUR ---
SHIFT SUMMARY PT A/OX4 AND COOPERATIVE OF CARE. PT ABLE TO EXPRESS NEEDS AND CALLS APPROPIATE. PT INDEPENENT IN BED AND SBA WHEN UP IN ROOM FOR LINE MANAGEMENT. PT RATE BETTER CONTROLED WITH ADDITION OF PO CARDIZEM, SEE EMAR. HR IN THE 90'S. OTHER VSS THROUGHOUT SHIFT. NO REPORT OF CHEST PAIN/PRESURE THROUGHOUT SHIFT. NO REPORT OF SOB/DYSPNEA THROUGHOUT SHIFT. PT HEP GTT STOPPED AND PT TO START PO ELIQUIS, SEE ORDERS. FLUIDS RUNNING PER ORDER. PT USES URINAL INDEPENDENTLY, TOLERATES WELL.
[2025-01-28 19:20] VITALS: BP 123/83
--- NOTE | 2025-01-28 20:13 | NUR ---
ASSUMPTION OF CARE PT A&0 X4, CALM, COOPERATIVE TO CARE. PT MEDICAL STATUS NO TELE. HR IN THE 90'S, BP STABLE. HE DENIES ANY CP/PRESSURE, NUMB/TINGLING. SpO2 >90% ON RA, HE DENIES ANY SOB. PT DENIES ANY N/V. ABD SEVERELY DISTENDED, FIRM ON PALPATION. PT DOES REPORT IMPROVEMENT ON TENDERNESS ON PALPATION. HE HAS ABD PAIN, MEDICATING PER EMAR. PT HAS URINAL AT BEDSIDE, URINE GREG IN COLOR. FLUIDS INFUSING PER EMAR. PT RESTING IN BED A THIS TIME. CALL LIGHT IN REACH.
[2025-01-28 23:51] VITALS: BP 101/72
[2025-01-29 03:14] VITALS: BP 133/74
--- NOTE | 2025-01-29 03:15 | NUR ---
transfer of care PT A&O X4, CALM, COOPERATIVE TO CARE. CIWAS PRN, LAST CIWA 5. PT MEDICAL STATUS NO TELE. BP STABLE, HR IN THE 90'S. SpO2 >90% ON RA, NO SOB. NO ACUTE CHANGES T/O SHIFT. PT HAD BED AVAILABLE UPSTAIRS. REPORT GIVEN TO POLLO KYLE. PT TRANSFERED TO MEDICAL FLOOR VIA BED.
--- NOTE | 2025-01-29 03:38 | NUR ---
SHIFT SUMMARY PT ARRIVED TO THE MEDICAL FLOOR AT 0305 FROM PCU. REPORT WAS RECEIVED FROM ANABELLA HUBBARD @5101. PT IS A/O X4, ABLE TO MAKE HIS NEEDS KNOWN AND COOPERATIVE WITH CARE. PT RATES RUQ, LUQ PAIN 09/14. MEDICATED WITH PRN 1MG DILAUDID IV. PT REPORTS GOOD EFFECTIVNESS WITH THE REGIMEN OF Q2HRS SWITCHING BETWEEN DILAUDID IV 1MG AND OXYCODONE 10MG PO. ICE WATER BY THE BEDSIDE. EDUCATED ON TAKING SMALL SIPS/ICE CHIPS. PT VERBALIZED UNDERSTANDING. D5NS INFUSING @150MLS/HR. PT IS SBA, CONTINENT AND UTILIZES URINAL BY STANDING BY THE BEDSIDE INDEPENDENTLY. EDUCATED INSTRUCTIONAL AIDE LIGHT AND FALL PRECAUTIONS. PT VERBALIZED UNDERSTANDING. PT BROUGHT ALL HIS BELONINGS WITH HIM. BED AT THE LOWEST POSITION, CALL LIGHT W/I REACH. PRN 325MG PO ASPIRIN ADMINISTERED FOR 09/14 HEADACHE, PT REPORTS HX OF MIGRANES.
[2025-01-29 05:56] LABS: BASOPHILS ABSOLUTE AUTO 0.02 K/mm3 (0.00-0.23); BASOPHILS PERCENT AUTO 0 % (0-2); EOSINOPHILS ABSOLUTE AUTO 0.13 K/mm3 (0.00-0.68); EOSINOPHILS PERCENT AUTO 2 % (0-6); Hematocrit 39.7 % (37.0-53.0); Hemoglobin 13.3 g/dL (13.5-17.5); IMMATURE GRAN ABSOLUTE AUTO 0.08 K/mm3 (0.00-0.10); IMMATURE GRAN PERCENT AUTO 1 % (0-1); LYMPHOCYTES ABSOLUTE AUTO 0.93 K/mm3 (0.84-5.20); LYMPHOCYTES PERCENT AUTO 11 % (21-46); MONOCYTES ABSOLUTE AUTO 0.88 K/mm3 (0.16-1.47); MONOCYTES PERCENT AUTO 10 % (4-13); Mean Corpuscular HGB Conc 33.5 g/dL (31.5-36.5); Mean Corpuscular Volume 99 fL (80-100); NEUTROPHILS ABSOLUTE AUTO 6.54 K/mm3 (1.96-9.15); NEUTROPHILS PERCENT AUTO 76 % (41-73); NRBC ABSOLUTE 0.00 K/mm3 (0.00-0.02); NRBC Auto 0.0 /100 WBC (0.0-0.2); Platelet Count 90 K/mm3 (150-400); RDW Coefficient Variation 13.3 % (11.7-14.2); RDW Standard Deviation 46.6 fL (35.1-46.3)
[2025-01-29 06:19] LABS: Alanine Aminotransfer (ALT/SGP 51.0 U/L (12-78); Albumin, Blood 2.1 g/dL (3.4-5.0); Albumin/Globulin Ratio 0.6 (0.8-1.8); Anion Gap 4.0 mmol/L (3-11); Aspartate Aminotrans (AST/SGOT 46.0 U/L (12-37); Bilirubin, Total 1.2 mg/dL (0.1-1.0); Blood Urea Nitrogen 29.0 mg/dL (8-24); CO2, Blood 32.0 mmol/L (21-32); Calcium, Blood 6.6 mg/dL (8.5-10.1); Chloride, Blood 101.0 mmol/L (98-108); Creatinine, Blood 1.24 mg/dL (0.60-1.20); Globulin, Blood 3.6 g/dL (2.2-4.0); Glucose, Blood 197.0 mg/dL (70-99); Potassium, Blood 3.1 mmol/L (3.5-5.5); Sodium, Blood 134.0 mmol/L (136-145); Total Protein, Blood 5.7 g/dL (6.4-8.2)
[2025-01-29 07:21] VITALS: BP 141/102
[2025-01-29] MEDS ORDERED: Polyethylene Glycol 3350 17 gm PO SCH (09:00)
[2025-01-29] MEDS ORDERED: Insulin Regular 100 UNIT/ML 10ML Vial SC SCH (11:30)
[2025-01-29 11:34] VITALS: BP 123/87
[2025-01-29] MEDS ORDERED: Acetaminophen/Aspirin/Caffeine 250/250/65 MG PO PRN (12:25)
[2025-01-29] MEDS ORDERED: HYDROmorphone HCl/Pf 1MG SYR IV PRN (12:30)
[2025-01-29] MEDS ORDERED: CALCIUM GLUC IN NACL, ISO-OSM 50 ML IV ONE (13:30)
[2025-01-29] MEDS ORDERED: NS 250 ML IV PRN (15:55)
--- NOTE | 2025-01-29 16:12 | NUR ---
SHIFT SUMMARY: PATIENT IS A&OX4/INDEPENDENT; ENCOURAGED TO GET UP, BUT CLAIMS UNABLE TO D/T HAVING A HEADACHE. PATIENT APPEARS TO LACK UNDERSTANDING AT TIMES WHEN IT COMES TO HIS CARE/MEDICAL CONDITIONS AND TREATMENT. REQUIRES A LOT OF RE-EDUCATION/REMINDING. PATIENT OVERALL PLEASANT AND COOPERATIVE WITH CARE. REQUEST PAIN MEDICATION OFTEN AND PREFERS IV OVER ALL; AGAIN EDUCATING PATIENT ON WEANING PROCESS OF IV TO ORALS AND ADVANCEMENT OF DIET FOR PLANS FOR DISCHARGE. HE IS IN BED, CALL LIGHT WITHIN REACH, NO SIGNS OR SYMPTOMS OF DISTRESS, RESPIRATIONS EVEN AND UNLABORED. PLAN OF CARE ONGOING.
[2025-01-29 16:40] VITALS: BP 132/74
--- NOTE | 2025-01-29 17:22 | NUR ---
PATIENT REPORTS SCROTUM SWELLING. SCROTUM EXAMINED. SCROTUM IS SWOLLEN; PT DENIES PAIN. NO PROMINENT REDNESS OR WARMTH. PATIENT HYGIENE IS POOR. CALL AND REPORTED TO DR. ACKERMAN. CT ABD OBTAINED ON 01/27 REPRODUCTIVE UNREMARKABLE. INTERVENTION ELEVATED, H[place]OCK, AND ICE PACK. PHOTO OBTAINED. AWAITING ORDERS FROM TYRON.
[2025-01-29 19:28] VITALS: BP 115/70
[2025-01-29] MEDS ORDERED: Insulin Glargine-Yfgn 100 Unit/mL 3 ML SYR SC SCH (21:00)
[2025-01-30 03:04] VITALS: BP 121/82
--- NOTE | 2025-01-30 05:40 | NUR ---
PT STILL IN PAIN T/O THE NIGHT. COMPLAINTS OF 5-7/10 ABDOMINAL PAIN NOTED ON ASSESSMENT. MEDICATED WITH IV PAIN MEDICINE X1. PT RE-EDUCATED ON PLAN TO WEAN OFF OF IV PAIN MEDICINE. PT SEEMED AGGREEABLE TO THAT PLAN. OTHERWISE NO ACUTE CHANGES PT AMBULATING TO BATHROOM, STATES HIS SCROTUM SEEMS LESS SWOLLEN THIS EVENING. CALL LIGHT WITHIN REACH.
[2025-01-30 06:13] LABS: Alanine Aminotransfer (ALT/SGP 47.0 U/L (12-78); Albumin, Blood 2.3 g/dL (3.4-5.0); Albumin/Globulin Ratio 0.6 (0.8-1.8); Anion Gap 8.0 mmol/L (3-11); Aspartate Aminotrans (AST/SGOT 53.0 U/L (12-37); Bilirubin, Total 1.6 mg/dL (0.1-1.0); Blood Urea Nitrogen 28.0 mg/dL (8-24); CO2, Blood 28.0 mmol/L (21-32); Calcium, Blood 7.3 mg/dL (8.5-10.1); Chloride, Blood 102.0 mmol/L (98-108); Creatinine, Blood 1.31 mg/dL (0.60-1.20); Globulin, Blood 3.8 g/dL (2.2-4.0); Glucose, Blood 147.0 mg/dL (70-99); Potassium, Blood 3.3 mmol/L (3.5-5.5); Sodium, Blood 135.0 mmol/L (136-145); Total Protein, Blood 6.1 g/dL (6.4-8.2)
[2025-01-30 07:14] VITALS: BP 152/78
[2025-01-30 11:45] VITALS: BP 102/63
[2025-01-30] MEDS ORDERED: CALCIUM GLUC IN NACL, ISO-OSM 50 ML IV ONE (14:50)
[2025-01-30 14:55] VITALS: BP 121/81
[2025-01-30 16:34] VITALS: BP 171/97
--- NOTE | 2025-01-30 17:22 | NUR ---
SHIFT SUMMARY: PATIENT TOLERATING DIET. PAIN MORE MANAGED TODAY. PATIENT HAS YET TO HAVE A BOWEL MOVEMENT; BOWEL MEDS GIVEN. HE IS IN BED, RESTING, RESPIRATIONS EVEN AND UNLABORED, CALL LIGHT WITHIN REACH, NO SIGNS OR SYMPTOMS OF DISTRESS,PLAN OF CARE ONGOING.
[2025-01-30 20:25] VITALS: BP 130/70
[2025-01-30] MEDS ORDERED: Polyethylene Glycol 3350 17 gm PO SCH (21:00)
--- NOTE | 2025-01-30 21:05 | NUR ---
DURING SHIFT ASSESSMENT THERE IS SIGNIFICANT SCROTAL SWELLING VISUALIZED, ALONG WITH PAIN, PRESSURE AND WARMTH. PT REPORTS THIS APPEARED SHORTLY AFTER ADMISSION WHEN HE WAS STARTED ON IV FLUIDS. IV FLUIDS HAVE SINCE BEEN STOPPED. PT FEELS THE SWELLING HAS WORSENED AND BECOME INCREASINGLY PAINFUL. REACHED OUT TO HOSPITALIST AND PLACED ORDER FOR SCROTAL ULTRASOUND ON 01/31 IN THE MORNING. PT AWARE.
--- NOTE | 2025-01-31 03:02 | NUR ---
SHIFT SUMMARY PT ALERT AND ORIENTED X 4. PLEASANT AND COOPERATIVE WITH CARES. ABLE TO MAKE NEEDS KNOWN. QUITE PAINFUL AT BEGINNING OF SHIFT. PT EXPRESSED FRUSTRATION THAT HE WAS TAKEN OFF IV PAIN MEDICATION. MEDICATED HIM WITH PO OXYCODONE WHICH PT STATED HELPED. HE IS INDEPENDENT IN THE ROOM. CONTINENT OF BOWEL AND BLADDER. RAC PIV/SALINE LOCKED. ON ROOM AIR. DIET IS SOFT AND BITE SIZED WHICH HE IS TOLERATING. ACHS. LAST BOWEL MOVEMENT WAS 01/26. BOWEL MEDS GIVEN TONIGHT. ON EXAM PT HAD SIGNIFICANT SCROTAL SWELLING, PAIN, FIRMNESS, AND WARMTH. PT REPORTS NEW ONSET WHEN RECEIVING FLUIDS, AND WORSENING SYMPTOMS. HOSPITALIST NOTIFIED, GAVE TELEPHONE ORDER FOR SCROTAL US. THIS SHOULD BE COMPLETED 01/31 IN THE MORNING. OTHERWISE PT IS WELL. VSS. BED IN LOWEST POSITION. CALL LIGHT IN REACH.
[2025-01-31 04:22] VITALS: BP 127/79
[2025-01-31 05:46] LABS: Anion Gap 8.0 mmol/L (3-11); Blood Urea Nitrogen 17.0 mg/dL (8-24); CO2, Blood 27.0 mmol/L (21-32); Calcium, Blood 8.6 mg/dL (8.5-10.1); Chloride, Blood 100.0 mmol/L (98-108); Creatinine, Blood 1.0 mg/dL (0.60-1.20); Glucose, Blood 160.0 mg/dL (70-99); Potassium, Blood 3.2 mmol/L (3.5-5.5); Sodium, Blood 132.0 mmol/L (136-145)
[2025-01-31 08:05] VITALS: BP 127/81
[2025-01-31] MEDS ORDERED: Furosemide 10 MG / ML 2ML Vial IV ONE (09:00)
[2025-01-31] MEDS ORDERED: Polyethylene Glycol 3350 17 gm PO SCH (09:00)
[2025-01-31 11:47] VITALS: BP 118/74
[2025-01-31] MEDS ORDERED: AMLO5 PO (13:44)
[2025-01-31] MEDS ORDERED: ACET325 PO (13:44)
[2025-01-31] MEDS ORDERED: OXAYDO5 M7 PO (13:45)
[2025-01-31] MEDS ORDERED: MIRALAX17 GM PO (13:45)
[2025-01-31] MEDS ORDERED: SENN187 PO (13:46)
--- NOTE | 2025-01-31 14:25 | NUR ---
DISCHARGE NOTE: A&OX4 PRIOR TO D/C. PT EDUCATION AND FOLLOW UP APPOINTMENTS DISCUSSED. PT TOLERATING ORAL PAIN MEDICATIONS AND FOOD. MEDICATIONS FAXED TO PHARMACY. PT SENT WITH HARD SCRIPT. IV REMOVED. PT ESCORTED OUT VIA W/C WITH STAFF.
== END 2025-01-31 14:53 | disposition home or self-care (01) | DRG 438 ==
LOC: ER 06:01 → PCU 06:02 → MEDS 01-28 12:02 → PCU 01-28 12:03 → MEDS 01-29 03:08
PROVIDERS: Student in an Organized Health Care Education/Training Program; ADMIT Internal Medicine
DX: K85.90 Acute pancreatitis without necrosis or infection, unspecified (principal); I21.A1 Myocardial infarction type 2; E87.20 Acidosis, unspecified; I48.92 Unspecified atrial flutter; R65.10 Systemic inflammatory response syndrome (SIRS) of non-infectious origin without acute organ dysfunction; I48.20 Chronic atrial fibrillation, unspecified; Z68.42 Body mass index [BMI] 45.0-49.9, adult; F90.9 Attention-deficit hyperactivity disorder, unspecified type; E11.9 Type 2 diabetes mellitus without complications; I10 Essential (primary) hypertension; K21.9 Gastro-esophageal reflux disease without esophagitis; G43.909 Migraine, unspecified, not intractable, without status migrainosus; I45.10 Unspecified right bundle-branch block; F25.0 Schizoaffective disorder, bipolar type; E86.0 Dehydration; D72.829 Elevated white blood cell count, unspecified; E66.01 Morbid (severe) obesity due to excess calories; E87.6 Hypokalemia; E83.51 Hypocalcemia; K59.00 Constipation, unspecified; R74.01 Elevation of levels of liver transaminase levels; F10.20 Alcohol dependence, uncomplicated; Z79.899 Other long term (current) drug therapy; Z79.85 Long-term (current) use of injectable non-insulin antidiabetic drugs; Z79.51 Long term (current) use of inhaled steroids; Z88.1 Allergy status to other antibiotic agents; Z79.01 Long term (current) use of anticoagulants; Z87.19 Personal history of other diseases of the digestive system; I25.2 Old myocardial infarction; Z87.891 Personal history of nicotine dependence; Z23 Encounter for immunization
CPT/HCPCS: 36415; 51798; 74177; 80048; 80053; 81001; 82330; 82947; 83605; 83690; 83735; 84484; 85025; 85520; 85610; 85730; 87040; 93005; 93010; 94640; 94664; 94760; 94762; 96365; 96366; 96367; 96375; 96376; 99285-25; A9270; C8929; G0378; J0612; J0696; J1171; J1644; J1815; J1938; J2543; J2765; J3010; J3475; J3480; J7042; J7050; J7120; Q9957; Q9967